=== PATIENT | male | born 1975 ===

== ENCOUNTER 2025-01-28 06:20 | Day surgery (SDC) | payer OTHER, SELFPAY ==
[2025-01-28] VITALS (7 sets, daily range): BP systolic 112–133; BP diastolic 69–76; BMI 43.4
[2025-01-28] MEDS: NORMOSOL-R/PLASMALYTE-A 1000 IV (14:02)
== END 2025-01-28 17:18 | disposition home or self-care (01) ==
LOC: SDS 06:20
PROVIDERS: ATTENDING PHYSICIAN Orthopaedic Surgery Hand Surgery
DX: S52.121A Displaced fracture of head of right radius, initial encounter for closed fracture (principal); M24.021 Loose body in right elbow; W19.XXXA Unspecified fall, initial encounter
CPT/HCPCS: 24666; C1776; 73080; 76000; 88305; 88311